=== PATIENT | male | born 2005 | race Caucasian/White ===

== ENCOUNTER 2024-07-08 18:26 | Emergency (ER) | payer SELFPAY ==
[~2024-07-08] VITALS: Ht 182.9 cm; Wt 77.3 kg
[2024-07-08 18:37] VITALS: TEMP 98.5
[2024-07-08] MEDS ORDERED: Ibuprofen 600 MG TAB PO ONE (19:15)
[2024-07-08] MEDS ORDERED: Home HYDROcodone/Acetaminophen 5/325 MG #4 TABS/PACK PO ONE (20:45)
[2024-07-08 21:04] VITALS: BP 118/72; PULSE 88
== END 2024-07-08 21:04 | disposition home or self-care (01) ==
LOC: COL.ER 18:26
DX: S82.832A Other fracture of upper and lower end of left fibula, initial encounter for closed fracture (principal); X50.1XXA Overexertion from prolonged static or awkward postures, initial encounter; Y93.67 Activity, basketball